=== PATIENT | female | born 1940 | race Caucasian/White ===

== ENCOUNTER 2022-02-28 06:35 | Inpatient (IN) ==
[2022-02-28] MEDS ORDERED: fentaNYL 100 MCG/2 ML VIAL IV ONE (06:38)
--- NOTE | 2022-02-28 06:41 | Emergency Department Note ---
Lower Extremity Injury HPI General Chief Complaint: Extremity Injury, Lower Stated Complaint: Fall,unknown time and unwitnessed , rt hip pain Time Seen by Provider: 02/28/22 06:37 Source: patient and EMS Mode of arrival: EMS Limitations: no limitations History of Present Illness HPI Narrative: Narrative: Patient presents to the ED with complaints of right hip pain status post fall. Patient states she was trying to help somebody she fell backward landed on her right hip. She denies head trauma, loss of consciousness, headaches, neck pain, chest pain, Andrey pain, shoulder pain, knee pain. Overall pain is rated 6/10 and described as a sharp ache. She denies any rrul-pih-dowkecz medication. EMS says that this is a live facility did not witness the fall but they did find patient down. Patient states she has not eaten since last night at dinner. Denies any other alleviating or aggravating factors. Related Data Allergies Allergy/AdvReac Type Severity Reaction Status Date / Time No Known Drug Allergies Allergy Unverified 02/28/22 06:40 Review of Systems ROS ROS Narrative: Narrative: All systems ED: reviewed and negative except as stated. [facility] Narrative Patient History Narrative: Narrative: Medical/Surgical/Family History All Active Problems (Updated 02/28/22 @ 06:41 by Abdirashid Garcia DO) Acute pain of right hip (Acute) Exam Narrative Narrative: Narrative: General Limitations: no limitations General appearance: Absent in distress Head Head: Present atraumatic and normocephalic Eye Eye: Present PERRL and EOMI ENT ENT: Present normal oropharynx and mucous membranes moist Neck Neck: Present normal inspection and full ROM Chest Chest: Present normal inspection; Absent tenderness Respiratory Respiratory: Present normal lung sounds bilaterally; Absent respiratory distress Cardiovascular Cardiovascular: Present regular rate and normal rhythm Adbominal Abdominal: Present soft; Absent tenderness Extremities Extremities: Present normal capillary refill Expanded Lower Extremity Hip/Pelvis: Present tenderness and shortening Knee: Present normal inspection and full ROM; Absent tenderness Back Back: Absent L-S tenderness Neurological Neurological: Present alert and oriented X3 Psychiatric Psychiatric: Present normal affect and normal mood Skin Skin: Present warm (WNL) and intact Course Course Course Narrative: Patient was evaluated for hip pain. Labs have been ordered and are currently pending. CT abdomen pelvis have been ordered and is pending. Patient given IV fentanyl for discomfort. Case will be signed to Dr. Flynn pending labs and CT results to determine final disposition. MDM MDM Narrative Medical decision making narrative: Narrative: Differential Diagnosis Differential Diagnosis: Hip fracture, fall Medical Records Medical records reviewed: Yes I reviewed the patient's medical records. Core Measures AMI Core Measures Followed: Yes Discharge Plan Patient/Caregiver Discharge Instructions Pt seen by CHA[employer] FOUNDER/PA only: No Clinical Impression: Acute pain of right hip Patient Disposition: Still a Patient Condition: Undetermined
[2022-02-28 07:02] LABS: POC Calcium, Ionized 1.22 (1.16-1.32); POC Creatinine 0.7 (0.6-1.2); POC Potassium 3.4 (3.3-5.1)
--- NOTE | 2022-02-28 07:45 | Emergency Department Note ---
Course Course Course Narrative: Serum care of the patient from Dr. Garcia at 0700 hrs. Reviewed chart x-rays and interviewed patient. Patient has an angulated noncomminuted femoral neck fracture. orthopedics asked for a plain film of the hip and to admit the patient. He will see her twan noon. Will order preop orders and call orthopedics. Vital Signs Vital signs: Vital Signs Temperature 97.2 F 02/28/22 06:36 Pulse Rate 81 02/28/22 06:36 Respiratory Rate 20 02/28/22 06:36 Blood Pressure 145/85 02/28/22 06:36 Pulse Oximetry (%) 86 L 02/28/22 06:36 Oxygen Delivery Method 02/28/22 06:36 Temperature 97.2 F 02/28/22 06:36 Pulse Rate 81 02/28/22 06:36 Respiratory Rate 20 02/28/22 06:36 Blood Pressure 145/85 02/28/22 06:36 Pulse Oximetry (%) 86 L 02/28/22 06:36 Oxygen Delivery Method 02/28/22 06:36 MDM MDM Narrative Medical decision making narrative: Narrative: Lab Data Result diagrams: 02/28/22 07:10 Labs: Lab Results 02/28/22 Range/Units 06:57 POC Hct 44.0 (36-48) POC Sodium 142 (133-145) POC Potassium 3.4 (3.3-5.1) POC Chloride 107 (96-108) POC Total CO2 25.0 (22-30) POC BUN 16 (6-20) POC Creatinine 0.7 (0.6-1.2) POC Glucose 108 H (70-105) POC WB Ioniz Calcium 1.22 (1.16-1.32) Discharge Plan Patient/Caregiver Discharge Instructions Pt seen by AUTOMOTIVE TIRE TESTER/PA only: No Clinical Impression: Acute pain of right hip Patient Disposition: Still a Patient Condition: Undetermined
[2022-02-28] MEDS: fentaNYL 100 MCG/2 ML VIAL IV PRN ×4 (07:59→11:27)
[2022-02-28 08:44] LABS: ALT/SGPT 17 U/L (<40); AST/SGOT 19 U/L (<32); Albumin 4.1 gm/dL (3.2-5.2); Albumin/Globulin Ratio 1.2 (1.0-2.3); Alkaline Phosphatase 87 U/L (39-117); Bilirubin,Total 0.9 mg/dL (0.1-1.0); Blood Urea Nitrogen 15 mg/dL (8-23); Calcium 9.6 mg/dL (8.6-10.4); Carbon Dioxide 25 mmol/L (22-30); Chloride 104 mmol/L (96-108); Globulin 3.3 gm/dL (2.2-3.7); Glomerular Filtration Rate 80; Glucose 102 mg/dL (70-105)
[2022-02-28 08:50] LABS: Basophils # (Auto) 0.03 K/mcL (0.00-0.30); Basophils % (Auto) 0.3 % (0.0-2.0); Eosinophils # (Auto) 0.16 K/mcL (0.00-0.70); Eosinophils % (Auto) 1.8 % (0.0-7.0); Hematocrit 42.9 % (34.1-44.9); Lymphocytes # (Auto) 1.51 K/mcL (1.50-4.80); Lymphocytes % (Auto) 17.4 % (15.5-49.0); Mean Cell Volume 101.7 fL (80.0-100.0); Mean Corpuscular HGB Conc 32.6 g/dL (31.0-36.0); Mean Platelet Volume 9.2 fL (8.8-12.5); Monocytes # (Auto) 0.45 K/mcL (0.10-0.90); Monocytes % (Auto) 5.2 % (1.0-12.0); Neutrophils % (Auto) 74.7 % (38.0-78.0); Platelet Count 262 K/mcL (140-440); RBC 4.22 M/mcL (3.59-5.38); Red Cell Distribution Width 12.5 % (11.5-14.5); WBC 8.7 K/mcL (4.5-11.0)
[2022-02-28 09:01] LABS: INR 1.5 (0.9-1.1)
--- NOTE | 2022-02-28 09:20 | XRay Report ---
CLINICAL INFORMATION: Preop COMPARISON: None. TECHNIQUE: Portable FINDINGS: Heart is moderately enlarged. Mediastinum and pulmonary vasculature are normal. There is moderate yet vague airspace disease in the left upper lung which is more likely fibrosis than developing infiltrate. Unfortunately old films are unavailable to confirm stability. Remaining lungs are clear. No effusions. Surgical clips present in the left axilla. IMPRESSION: Moderate cardiomegaly. No evidence of CHF Moderate vague airspace disease left upper lung is most likely fibrosis however evolving infiltrate is not excluded Interpreted and Authenticated by: Jared Sanford 02/28/22
--- NOTE | 2022-02-28 09:28 | XRay Report ---
CLINICAL INFORMATION: Trauma COMPARISON: None. FINDINGS: Basicervical fracture of the right hip shows 1 cm superior displacement femoral neck with respect to the head. There is mild degeneration both SI and hip joints. Soft tissue swelling noted over the fracture site. IMPRESSION: Displaced basicervical fracture right hip Interpreted and Authenticated by: Jared Sanford 02/28/22
--- NOTE | 2022-02-28 10:25 | Cat Scan Report ---
CLINICAL INFORMATION: Trauma COMPARISON: None. TECHNIQUE: 0.625 mm helical slices were obtained from the mid L4 through the subtrochanteric regions. Following reconstruction, 2.5 mm sagittal, coronal and axial reformations were processed. The exam was reviewed in bone and soft tissue windows. The exam was performed using radiation dose optimization techniques including, but not limited to, automated exposure control, adjustment of mA and/or kV according to patient size and use of iterative reconstruction technique. FINDINGS: Transverse acute subcapital fracture of the right hip appreciated. Femoral neck fragment is displaced 18 mm anteriorly and 9 mm superiorly with respect to the femoral head. There is also approximately 40 degrees anterior angulation of fracture apex. No other osseous abnormalities. Both SI and hip joints show minimal degeneration. Anteflexed uterus is normal postmenopausal size 6.7 x 3 cm. Few tiny calcified fibroids present. Urinary bladder is normal. Both ovaries are atrophic and difficult to visualize. Visualized small large bowel are grossly normal. There is no free air, free fluid or adenopathy. Muscle and fascial planes are normal. IMPRESSION: Moderately displaced angulated subcapital fracture right hip Interpreted and Authenticated by: Jared Sanford 02/28/22
--- NOTE | 2022-02-28 10:39 | Internal Med History&Physical ---
HPI History of Present Illness Patient information: Note initiated : 02/28/22 at 10:34 am Service Date, if different from initiated Date: [] Patient: Melly Newell a 81 y/o F admitted on for Fall,unknown time and unwitnessed , rt hip pain. Chief Complaint: [] History of present illness: Ms. Newell is a 81 year old F Presents to the ED after fall and right hip pain. She lives at [facility] and report was that she was helping her roommate when she lost her balance and fell on her right hip immediate pain. She is on Xarelto with an INR of 1.5. She does not know where she is on Xarelto. Family are coming and will try to ascertain the reasoning for which she is taking that medication. We were contacted orthopedic surgery. Review of Systems: Pertinent positives above. Denies headache/fever/chills/nausea/vomiting/chest or abdominal pain/cough/dyspnea/diarrhea. Remaining 10 point review of system reviewed negative PFSH PFSH All Active Problems (Updated 02/28/22 @ 06:41 by Abdirashid Garcia DO) Acute pain of right hip (Acute) MEDS/ALLERGIES Home Medications and Allergies Allergies Allergy/AdvReac Type Severity Reaction Status Date / Time No Known Drug Allergies Allergy Unverified 02/28/22 06:40 EXAM Constitutional Vitals: Temp Pulse Resp BP Pulse Ox O2 Del Method O2 Flow Rate 97.2 F 74 20 131/83 91 4 02/28/22 06:36 02/28/22 09:46 02/28/22 06:36 02/28/22 09:46 02/28/22 09:46 02/28/22 09:16 02/28/22 09:16 Exam: General: Alert, Awake, No acute Distress Eyes/N/T: EOMI, PERRL, Head/Neck: neck supple, normocephalic atraumatic CV: RRR, No murmurs, normal s1/s2 Pulm: Clear b/l, no wheezing/rhonchi/rales Abd: soft, nontender, +BS x4 Ext: no clubbing/cyanosis/edema Neuro: Alert, no focal deficits, moves all extremities, CN 2-12 grossly intact, sensations intact b/l upper/lower Skin: warm/dry DATA Data Completed and Pending Labs: Labs from last 24 hours 02/28/22 02/28/22 02/28/22 07:10 07:10 07:10 WBC 8.7 RBC 4.22 Hgb 14.0 Hct 42.9 POC Hct MCV 101.7 H MCH 33.2 MCHC 32.6 RDW 12.5 Plt Count 262 MPV 9.2 Immature Gran % (Auto) 0.6 H Neut % (Auto) 74.7 Lymph % (Auto) 17.4 [place]zel % (Auto) 5.2 Eos % (Auto) 1.8 Baso % (Auto) 0.3 Lymph # (Auto) 1.51 [place] # (Auto) 0.45 Eos # (Auto) 0.16 Baso # (Auto) 0.03 Immature Gran # 0.05 Absolute Neutrophils 6.46 PT 18.0 H INR 1.5 H POC Sodium Sodium 141 POC Potassium Potassium 3.5 POC Chloride Chloride 104 Carbon Dioxide 25 POC Total CO2 Anion Gap 12.0 POC BUN BUN 15 Creatinine 0.7 POC Creatinine GFR Calculation 80 Glucose 102 POC Glucose Calcium 9.6 POC WB Ioniz Calcium Total Bilirubin 0.9 AST 19 ALT 17 Alkaline Phosphatase 87 Total Protein 7.4 Albumin 4.1 Globulin 3.3 Albumin/Globulin Ratio 1.2 02/28/22 06:57 WBC RBC Hgb Hct POC Hct 44.0 MCV MCH MCHC RDW Plt Count MPV Immature Gran % (Auto) Neut % (Auto) Lymph % (Auto) [place] % (Auto) Eos % (Auto) Baso % (Auto) Lymph # (Auto) [place] # (Auto) Eos # (Auto) Baso # (Auto) Immature Gran # Absolute Neutrophils PT INR POC Sodium 142 Sodium POC Potassium 3.4 Potassium POC Chloride 107 Chloride Carbon Dioxide POC Total CO2 25.0 Anion Gap POC BUN 16 BUN Creatinine POC Creatinine 0.7 GFR Calculation Glucose POC Glucose 108 H Calcium POC WB Ioniz Calcium 1.22 Total Bilirubin AST ALT Alkaline Phosphatase Total Protein Albumin Globulin Albumin/Globulin Ratio A/P Narrative A/P Narrative: A: *Right hip fracture: *Advanced dementia: *Anticoagulation use: Unknown reason *Generalized weakness/deconditioning: P: -Dr. Carson for orthopedic surgery -Pain control -PT/OT -UA -Delirium precautions -Home medication reconciliation -Case management for placement needs -ppx: SCDs (Xarelto held) Time Spent With Patient Time: Total time spent is greater than 50% in coordination of care (as documented) at patient's floor/unit and/or counseling patient: Total time spent with greater than 50% in coordination of care (as documented) at patient's floor/unit and/or counseling patient:: 50 - 70 minutes QUALITY Stroke Symptom Onset Unknown: No
[2022-02-28] MEDS ORDERED: MAGNESIUM SULFATE 2 GM/50 ML BAG IV PRN (12:15)
[2022-02-28] MEDS ORDERED: POLYETHYLENE GLYCOL 3350 17 GM PACKET PO PRN (12:15)
[2022-02-28] MEDS ORDERED: POTASSIUM CHLORIDE 20 MEQ TABLET PO PRN ×2 (12:15)
[2022-02-28] MEDS ORDERED: POTASSIUM CHLORIDE 40 MEQ in DEXTROSE 5% IN WATER 500 ML IV PRN (12:15)
[2022-02-28] MEDS ORDERED: SENNOSIDES 1 TABLET PO PRN (12:15)
[2022-02-28] MEDS ORDERED: ONDANSETRON 4 MG/2 ML VIAL IV PRN (12:15)
[2022-02-28] MEDS ORDERED: IPRATROPIUM/ALBUTEROL 3 ML AMPUL.NEB NEB PRN (12:15)
[2022-02-28] MEDS: morphine 4 MG/ML VIAL IV PRN ×2 (13:16→15:22)
[2022-02-28] MEDS: 0.9 % SODIUM CHLORIDE 10 ML SYRINGE IV SCH ×2 (15:23→21:48)
[2022-02-28] MEDS ORDERED: PROMETHAZINE 25 MG/ML VIAL IV PRN (15:55)
[2022-02-28 16:41] LABS: Appearance,Urine HAZY (Clear); Bilirubin,Urine Negative (Negative); Color,Urine YELLOW; Culture Indicated,Urine No; Glucose,Urine (UA) Negative (Negative); Ketones,Urine 5 mg/dL (Negative); Leukocyte Esterase,Urine Negative /uL (Negative); Mucus,Urine FEW /hpf; Nitrate,Urine Negative (Negative); Protein,Urine Negative (Negative); Specific Gravity,Urine 1.015 (1.000-1.035); Urine Blood 0.03 mg/dL (Negative); Urine Hyaline Cast 3 /lph (0-2); Urine RBC 14 /hpf (0-3); Urine Squamous Epithelial Cell < 1 /hpf (0-4); Urine WBC 2 /hpf (0-4); Urobilinogen,Urine Negative
[2022-02-28] MEDS: DOCUSATE SODIUM 100 MG CAPSULE PO SCH (21:18)
[2022-03-01] MEDS: 0.9 % SODIUM CHLORIDE 10 ML SYRINGE IV SCH ×3 (05:28→22:04)
[2022-03-01] MEDS: ACETAMINOPHEN 325 MG TABLET PO PRN ×2 (06:52→19:43)
[2022-03-01 06:56] LABS: Basophils # (Auto) 0.03 K/mcL (0.00-0.30); Basophils % (Auto) 0.3 % (0.0-2.0); Eosinophils # (Auto) 0.06 K/mcL (0.00-0.70); Eosinophils % (Auto) 0.5 % (0.0-7.0); Hematocrit 41.3 % (34.1-44.9); Hemoglobin 13.4 g/dL (11.2-15.7); Lymphocytes # (Auto) 1.01 K/mcL (1.50-4.80); Lymphocytes % (Auto) 8.9 % (15.5-49.0); Mean Corpuscular HGB Conc 32.4 g/dL (31.0-36.0); Mean Platelet Volume 8.9 fL (8.8-12.5); Monocytes # (Auto) 0.94 K/mcL (0.10-0.90); Monocytes % (Auto) 8.3 % (1.0-12.0); Neutrophils % (Auto) 81.6 % (38.0-78.0); Platelet Count 218 K/mcL (140-440); RBC 4.05 M/mcL (3.59-5.38); Red Cell Distribution Width 12.4 % (11.5-14.5); WBC 11.4 K/mcL (4.5-11.0)
--- NOTE | 2022-03-01 06:58 | Orthopedic Progress Note ---
SUBJECTIVE Subjective Patient information: Note initiated : 03/01/22 at 6:56 am Service Date, if different from initiated Date: [] Patient: Melly Newell 81 y/o F admitted on 02/28/22 for Fall,unknown time and unwitnessed , rt hip pain. Chief Complaint: [] Constitutional Vitals: Vital Signs Temp Pulse Resp BP Pulse Ox O2 Del Method O2 Flow Rate 99.2 F H 82 16 131/86 91 3 03/01/22 04:00 03/01/22 04:00 03/01/22 04:00 03/01/22 04:00 03/01/22 04:00 03/01/22 04:00 03/01/22 04:00 Period Temp Pulse Resp BP Sys/Wasserman Pulse Ox O2 Del Method O2 Flow Rate Last 24 Hr 97.2 F-99.2 F 67-89 16-20 115-152/62-121 88-97 Nasal Cannula- Room Air 2-4 Intake and Output 02/28/22 03/01/22 03/01/22 19:59 03:59 11:59 Intake Total 480 240 Output Total 900 350 Balance -420 -110 Weight 160 lb 150 lb 4 oz Intake & Output: Intake & Output 02/28/22 03/01/22 03/01/22 19:59 03:59 11:59 Intake Total 480 240 Output Total 900 350 Balance -420 -110 Weight 160 lb 150 lb 4 oz Intake: Oral 480 120 GI Tube Flush 120 Output: Urine Catheter Amount 900 350 Other: Urine Appearance Clear Clear Clear Urine Color Light Zarina Yellow Yellow Urine Odor Normal Normal # Unmeasured Emesis 3 OBJ DATA Labs CBC & Chem 7: 02/28/22 07:10 02/28/22 07:10 Labs: Abnormal Lab Results 02/28/22 02/28/22 02/28/22 16:00 07:10 07:10 MCV 101.7 H Immature Gran % (Auto) 0.6 H PT 18.0 H INR 1.5 H POC Glucose Urine Appearance Hazy A Urine Ketones 5 A Urine RBC 14 H Hyaline Casts 3 H Urine Mucus Few A 02/28/22 06:57 MCV Immature Gran % (Auto) PT INR POC Glucose 108 H Urine Appearance Urine Ketones Urine RBC Hyaline Casts Urine Mucus Meds: Medications Acetaminophen (Acetaminophen 325 Mg Tablet) 650 mg PO Q6HP PRN; Protocol PRN Reason: Per Pain Protocol/Fever > 101 Last Admin: 03/01/22 06:52 Dose: 650 mg Hydrocodone Bitart/Acetaminophen (Hydrocodone/Apap 5/325mg Tablet) 1 tab PO Q4HP PRN PRN Reason: PAIN LEVEL 3-6 Albuterol/Ipratropium (Ipratropium/Albuterol 3 Ml Ampul.Neb) 3 ml NEB Q4HP PRN PRN Reason: Shortness Of Breath Docusate Sodium (Docusate Sodium 100 Mg Capsule) 100 mg PO BID [facility] Last Admin: 02/28/22 21:18 Dose: Not Given Potassium Chloride 40 meq/ (Dextrose) 520 mls @ 130 mls/hr IV UD PRN PRN Reason: Potassium < 3 Magnesium Sulfate (Magnesium Sulfate) 2 gm in 50 mls @ 50 mls/hr IV UD PRN PRN Reason: Magnesium </= 1.6 Morphine Sulfate (Morphine 4 Mg/Ml Vial) 0 mg IV Q3HP PRN PRN Reason: Pain Last Admin: 02/28/22 15:22 Dose: 3 mg Ondansetron HCl (Ondansetron 4 Mg/2 Ml Vial) 4 mg IV Q4HP PRN PRN Reason: Nausea And Vomiting Last Admin: 02/28/22 15:22 Dose: 4 mg Polyethylene Glycol (Polyethylene Glycol 3350 17 Gm Packet) 17 gm PO DAILYP PRN PRN Reason: Constipation Potassium Chloride (Potassium Chloride 20 Meq Tablet) 40 meq PO UD PRN PRN Reason: Potssium is 3-3.5 Potassium Chloride (Potassium Chloride 20 Meq Tablet) 40 meq PO UD PRN PRN Reason: Potassium < 3 Promethazine HCl (Promethazine 25 Mg/Ml Vial) 12.5 mg IV Q4-6HP PRN PRN Reason: Nausea And Vomiting Last Admin: 02/28/22 16:12 Dose: 12.5 mg Senna (Sennosides 1 Tablet) 2 tab PO DAILYP PRN PRN Reason: Constipation Sodium Chloride (0.9 % Sodium Chloride 10 Ml Syringe) 10 ml IV Q8 [facility] Last Admin: 03/01/22 05:28 Dose: 10 ml A/P Assessment and plan (1) Acute pain of right hip: Assessment and plan: note dictated yesterday- plan is for leena hip tomorrow AM blood thinner. Discussed with Dr. Shields, he is willing to take over care given my unavailability tomorrow. Status: Acute Time Spent With Patient Time: Total time spent is greater than 50% in coordination of care (as documented) at patient's floor/unit and/or counseling patient:
--- NOTE | 2022-03-01 07:30 | Consultation ---
DATE OF CONSULTATION: 02/28/2022 REASON FOR CONSULTATION: Right hip fracture. HOSPITAL PROVIDER: ER at [facility]. HISTORY OF PRESENT ILLNESS: The patient is an 81-year-old female who resides at a nursing care facility and she was found on the ground this morning next to her roommate. She was brought to the emergency department for further evaluation and treatment. Upon presentation, she was found to have a right hip fracture. She was admitted to the hospitalist service today. I discussed this afternoon with her daughter who was present as well. The patient was asleep but no complaints on that is noted. PAST MEDICAL HISTORY: Significant for dementia as well as AFib for which she is on Xarelto. ALLERGIES: NO KNOWN DRUG ALLERGIES. MEDICATIONS: Xarelto. SOCIAL HISTORY: As noted above, she resides in a care facility. No tobacco use. PHYSICAL EXAMINATION: GENERAL: The patient is asleep and comfortable and not in acute distress. VITAL SIGNS: She is afebrile with temperature 97.9, satting 94% on 2 L nasal cannula, blood pressure is stable 130s. EXTREMITIES: Range of motion of the hip is not performed around this fracture. The foot is warm and well perfused. It is shortened and externally rotated. IMAGING: She has plain radiographs demonstrating a displaced femoral neck fracture. She has a CT which demonstrated a right displaced femoral neck fracture. She has x-ray demonstrating a displaced right femoral neck fracture with minimal underlying arthritis. LABORATORY DATA: She has an INR of 1.5. CBC with a white count of 8.7, H and H are 14 and 42, platelets 262. Chemistry with creatinine 0.7, glucose 102. ASSESSMENT AND PLAN: This is an 81-year-old female with dementia as well as on Xarelto with a right displaced femoral neck fracture. I discussed this with her daughter as well as treatment options. I discussed the typical treatment would be for a right leena hip arthroplasty. I discussed what this is as well as expectations. However, given the Xarelto, I typically recommended to wait about 48 hours prior to proceeding with surgery. I discussed risks of that proceeding without waiting as bleeding could be relatively uncontrolled and significant blood loss can occur. Given that they did understand, okay to proceed with waiting the two days and proceeding with right hip hemiarthroplasty on Friday morning. I had discussed this case with Dr. Smith as I am going to be out of town and will not be available for the surgery itself. They understand. Otherwise, questions answered. DLW:lázaro Job ID: [id number] Doc ID: [id number] Karime Carson MD [facility]
[2022-03-01 07:37] LABS: ALT/SGPT 13 U/L (<40); AST/SGOT 15 U/L (<32); Albumin 3.6 gm/dL (3.2-5.2); Albumin/Globulin Ratio 1.2 (1.0-2.3); Alkaline Phosphatase 73 U/L (39-117); Bilirubin,Direct 0.2 mg/dL (<0.3); Blood Urea Nitrogen 15 mg/dL (8-23); Calcium 9.4 mg/dL (8.6-10.4); Carbon Dioxide 25 mmol/L (22-30); Chloride 103 mmol/L (96-108); Globulin 3.1 gm/dL (2.2-3.7); Glomerular Filtration Rate 68; Glucose 102 mg/dL (70-105); Lactate Dehydrogenase 224 U/L (135-225); Phosphorous 3.3 mg/dL (2.5-4.5); Triglycerides 81 mg/dL (<150); Uric Acid 5.2 mg/dL (2.5-8.0)
--- NOTE | 2022-03-01 07:41 | EKG ---
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
--- NOTE | 2022-03-01 07:55 | Internal Med Progress Note ---
SUBJECTIVE Subjective Patient information: Note initiated : 03/01/22 at 7:53 am Service Date, if different from initiated Date: [] Patient: Melly Newell a 81 y/o F admitted on 02/28/22 for Fall,unknown time and unwitnessed , rt hip pain. Chief Complaint: [] Interval history: History of present illness: Ms. Newell is a 81 year old F Presents to the ED after fall and right hip pain. She lives at [facility] and report was that she was helping her roommate when she lost her balance and fell on her right hip immediate pain. She is on Xarelto with an INR of 1.5. She does not know where she is on Xarelto. Family are coming and will try to ascertain the reasoning for which she is taking that medication. We were contacted orthopedic surgery. 03/01 No overnight event or new complaints. Patient pleasantly demented. Ortho for repair tomorrow. Sounds like she is on Xarelto for atrial fibrillation which is currently sinus likely paroxysmal A. fib. Review of Systems: denies headache/fever/chills/nausea/vomiting/chest or abdominal pain/cough/dyspnea/diarrhea. Otherwise see above. Constitutional Vitals: Vital Signs Temp Pulse Resp BP Pulse Ox O2 Del Method O2 Flow Rate 99.7 F H 85 18 115/90 91 4 03/01/22 07:16 03/01/22 07:30 03/01/22 07:30 03/01/22 07:16 03/01/22 07:30 03/01/22 07:30 03/01/22 07:30 Period Temp Pulse Resp BP Sys/Wasserman Pulse Ox O2 Del Method O2 Flow Rate Last 24 Hr 97.2 F-99.7 F 67-89 16-20 115-152/62-121 88-97 Nasal Cannula- Room Air 2-4 Intake and Output 02/28/22 03/01/22 03/01/22 19:59 03:59 11:59 Intake Total 480 240 Output Total 900 350 Balance -420 -110 Weight 72.575 kg 68.152 kg Intake & Output: Intake & Output 02/28/22 03/01/22 03/01/22 19:59 03:59 11:59 Intake Total 480 240 Output Total 900 350 Balance -420 -110 Weight 72.575 kg 68.152 kg Intake: Oral 480 120 GI Tube Flush 120 Output: Urine Catheter Amount 900 350 Other: Urine Appearance Clear Clear Clear Urine Color Light Zarina Yellow Yellow Urine Odor Normal Normal # Unmeasured Emesis 3 Exam: General: Alert, Awake, No acute Distress Eyes/N/T: EOMI,, Head/Neck: neck supple, CV: RRR, No murmurs, Pulm: Clear b/l, no wheezing/rhonchi/rales Abd: soft, nontender, +BS x4 Ext: no clubbing/cyanosis/edema Neuro: Alert, no focal deficits, moves all extremities, Skin: warm/dry OBJ DATA Labs CBC & Chem 7: 03/01/22 05:41 03/01/22 05:40 Labs: Abnormal Lab Results 03/01/22 02/28/22 02/28/22 05:41 16:00 07:10 WBC 11.4 H MCV 102.0 H Immature Gran % (Auto) Neut % (Auto) 81.6 H Lymph % (Auto) 8.9 L Lymph # (Auto) 1.01 L [place] # (Auto) 0.94 H Absolute Neutrophils 9.31 H PT 18.0 H INR 1.5 H POC Glucose Urine Appearance Hazy A Urine Ketones 5 A Urine RBC 14 H Hyaline Casts 3 H Urine Mucus Few A 02/28/22 02/28/22 07:10 06:57 WBC MCV 101.7 H Immature Gran % (Auto) 0.6 H Neut % (Auto) Lymph % (Auto) Lymph # (Auto) [place] # (Auto) Absolute Neutrophils PT INR POC Glucose 108 H Urine Appearance Urine Ketones Urine RBC Hyaline Casts Urine Mucus Meds: Medications Acetaminophen (Acetaminophen 325 Mg Tablet) 650 mg PO Q6HP PRN; Protocol PRN Reason: Per Pain Protocol/Fever > 101 Last Admin: 03/01/22 06:52 Dose: 650 mg Hydrocodone Bitart/Acetaminophen (Hydrocodone/Apap 5/325mg Tablet) 1 tab PO Q4HP PRN PRN Reason: PAIN LEVEL 3-6 Albuterol/Ipratropium (Ipratropium/Albuterol 3 Ml Ampul.Neb) 3 ml NEB Q4HP PRN PRN Reason: Shortness Of Breath Last Admin: 03/01/22 07:03 Dose: 3 ml Docusate Sodium (Docusate Sodium 100 Mg Capsule) 100 mg PO BID [facility] Last Admin: 02/28/22 21:18 Dose: Not Given Potassium Chloride 40 meq/ (Dextrose) 520 mls @ 130 mls/hr IV UD PRN PRN Reason: Potassium < 3 Magnesium Sulfate (Magnesium Sulfate) 2 gm in 50 mls @ 50 mls/hr IV UD PRN PRN Reason: Magnesium </= 1.6 Morphine Sulfate (Morphine 4 Mg/Ml Vial) 0 mg IV Q3HP PRN PRN Reason: Pain Last Admin: 02/28/22 15:22 Dose: 3 mg Ondansetron HCl (Ondansetron 4 Mg/2 Ml Vial) 4 mg IV Q4HP PRN PRN Reason: Nausea And Vomiting Last Admin: 02/28/22 15:22 Dose: 4 mg Polyethylene Glycol (Polyethylene Glycol 3350 17 Gm Packet) 17 gm PO DAILYP PRN PRN Reason: Constipation Potassium Chloride (Potassium Chloride 20 Meq Tablet) 40 meq PO UD PRN PRN Reason: Potssium is 3-3.5 Potassium Chloride (Potassium Chloride 20 Meq Tablet) 40 meq PO UD PRN PRN Reason: Potassium < 3 Promethazine HCl (Promethazine 25 Mg/Ml Vial) 12.5 mg IV Q4-6HP PRN PRN Reason: Nausea And Vomiting Last Admin: 02/28/22 16:12 Dose: 12.5 mg Senna (Sennosides 1 Tablet) 2 tab PO DAILYP PRN PRN Reason: Constipation Sodium Chloride (0.9 % Sodium Chloride 10 Ml Syringe) 10 ml IV Q8 [facility] Last Admin: 03/01/22 05:28 Dose: 10 ml A/P Narrative A/P Narrative: A: *Right hip fracture: *Advanced dementia: *Generalized weakness/deconditioning: *PAF: on xaralto, not on any AVN blockers *Macrocytosis: *Volume depletion: P: -Dr. Carson for orthopedic surgery -Pain control -PT/OT -s/p IVF -f/u cbc/chem -Delirium precautions -Case management for placement needs -ppx: SCDs (Xarelto held) Time Spent With Patient Time: Total time spent is greater than 50% in coordination of care (as documented) at patient's floor/unit and/or counseling patient: Total time spent with greater than 50% in coordination of care (as documented) at patient's floor/unit and/or counseling patient:: 25 - 35 minutes QUALITY Stroke Symptom Onset Unknown: No VTE Deep Vein Thrombosis/Pulmonary Embolism Present on Admission: No
[2022-03-01] MEDS: DOCUSATE SODIUM 100 MG CAPSULE PO SCH ×2 (08:24→22:04)
[2022-03-01] MEDS ORDERED: METOPROLOL TARTRATE 5 MG/5 ML VIAL IV PRN (10:01)
[2022-03-01] MEDS: morphine 4 MG/ML VIAL IV PRN (10:36)
--- NOTE | 2022-03-01 14:25 | XRay Report ---
CLINICAL INFORMATION: Chest pain COMPARISON: 02/28/2022 TECHNIQUE: Portable FINDINGS: Moderate cardiomegaly is unchanged. Mediastinum and pulmonary vessels are normal. Minor bibasilar atelectasis developed. No effusions. IMPRESSION: Moderate stable cardiomegaly. Minor bibasilar atelectasis Interpreted and Authenticated by: Jared Sanford 03/01/22
[2022-03-01 16:51] LABS: Eosinophils % (Manual) 3 % (0-7); Lymphocytes % 16 % (15-49); Macrocytosis 1+ (None Seen); Monocytes % (Manual) 6 % (1-12); Platelet Estimate NORMAL (Normal); RBC Morphology ABNORMAL (Normal); Reactive Lymphocytes 4 % (0-2); Segmented Neutrophils % 71 % (38-78)
[2022-03-02 07:05] LABS: Basophils # (Auto) 0.02 K/mcL (0.00-0.30); Basophils % (Auto) 0.2 % (0.0-2.0); Eosinophils # (Auto) 0.03 K/mcL (0.00-0.70); Eosinophils % (Auto) 0.3 % (0.0-7.0); Hematocrit 40.7 % (34.1-44.9); Hemoglobin 13.5 g/dL (11.2-15.7); Lymphocytes % (Auto) 12.6 % (15.5-49.0); Mean Corpuscular HGB Conc 33.2 g/dL (31.0-36.0); Mean Platelet Volume 9.5 fL (8.8-12.5); Monocytes # (Auto) 0.93 K/mcL (0.10-0.90); Monocytes % (Auto) 8.4 % (1.0-12.0); Platelet Count 199 K/mcL (140-440); RBC 4.03 M/mcL (3.59-5.38); Red Cell Distribution Width 12.5 % (11.5-14.5); WBC 11.1 K/mcL (4.5-11.0)
[2022-03-02] MEDS: 0.9 % SODIUM CHLORIDE 10 ML SYRINGE IV SCH ×3 (07:38→21:50)
[2022-03-02] MEDS ORDERED: ceFAZolin 1 GM VIAL IV ONE (07:58)
[2022-03-02] MEDS ORDERED: IPRATROPIUM/ALBUTEROL 3 ML AMPUL.NEB NEB PRN (08:00)
[2022-03-02] MEDS ORDERED: SCOPOLAMINE 1 PATCH PATCH TOPICAL PRN (08:00)
[2022-03-02] MEDS ORDERED: PROPOFOL 200 MG/20 ML VIAL IV ONE (08:05)
[2022-03-02] MEDS ORDERED: ROCURONIUM 10 MG/ML ML IV ONE (08:05)
[2022-03-02] MEDS ORDERED: ROPIVACAINE HCL/PF 20 ML VIAL IJ ONE (08:05)
[2022-03-02] MEDS ORDERED: PHENYLephrine 1 MG/10 ML SYRINGE (ANEST) ONE (08:05)
[2022-03-02] MEDS ORDERED: fentaNYL 250 MCG/5 ML VIAL IV ONE (08:05)
[2022-03-02] MEDS ORDERED: LIDOCAINE HCL/PF 100 MG/5 ML SYRINGE IV ONE (08:05)
[2022-03-02] MEDS ORDERED: DEXAMETHASONE 10 MG/ML VIAL ONE (08:05)
[2022-03-02] MEDS ORDERED: TRANEXAMIC ACID 1,000 MG/10 ML VIAL ONE (08:05)
--- NOTE | 2022-03-02 08:14 | Internal Med Progress Note ---
SUBJECTIVE Subjective Patient information: Note initiated : 03/02/22 at 8:10 am Service Date, if different from initiated Date: [] Patient: Melly Newell a 81 y/o F admitted on 02/28/22 for Right H emiarthroplasty Hip. Chief Complaint: [] Interval history: History of present illness: Ms. Newell is a 81 year old F Presents to the ED after fall and right hip pain. She lives at [facility] and report was that she was helping her roommate when she lost her balance and fell on her right hip immediate pain. She is on Xarelto with an INR of 1.5. She does not know where she is on Xarelto. Family are coming and will try to ascertain the reasoning for which she is taking that medication. We were contacted orthopedic surgery. 03/01 No overnight event or new complaints. Patient pleasantly demented. Ortho for repair tomorrow. Sounds like she is on Xarelto for atrial fibrillation which is currently sinus likely paroxysmal A. fib. 03/02 Patient status post hip ORIF. She is just returned from PACU and still little g roggy. Complains of some hip pain. Patient required increasing oxygen yesterday. As she seemed to be having trouble trouble clearing her throat. Then she was able to cough up a large amount of thick phlegm in her oxygen improved. She was on room air this morning prior to surgery. Follow-up chest x-ray yesterday just showed minor bibasilar atelectasis no acute changes. Calcitonin unremarkable. Afebrile. Review of Systems: denies headache/fever/chills/nausea/vomiting/chest or abdominal pain /cough/dyspnea/diarrhea. Otherwise see above. Constitutional Vitals: Vital Signs Temp Pulse Resp BP Pulse Ox O2 Del Method O2 Flow Rate 99.4 F H 96 H 16 104/66 91 4 03/02/22 07:56 03/02/22 04:00 03/02/22 07:56 03/02/22 07:56 03/02/22 07:56 03/02/22 07:56 03/01/22 15:59 Period Temp Pulse Resp BP Sys/Wasserman Pulse Ox O2 Del Method O2 Flow Rate Last 24 Hr 97.2 F-99.5 F 96-117 16-20 92-137/66-83 91-94 Nasal Cannula- Room Air 4-4 Intake and Output 03/01/22 03/02/22 03/02/22 19:59 03:59 11:59 Intake Total 350 100 Output Total 395 500 Balance -45 -400 Weight 68.152 kg 68.855 kg Intake & Output: Intake & Output 03/01/22 03/02/22 03/02/22 19:59 03:59 11:59 Intake Total 350 100 Output Total 395 500 Balance -45 -400 Weight 68.152 kg 68.855 kg Intake: Oral 350 100 Output: Urine Catheter Amount 375 500 Other 20 Other: Urine Appearance Clear Clear Clear Urine Color Bright Yellow Dark Yellow Dark Zarina Urine Odor Normal Strong Exam: General: Drowsy, No acute Distress Eyes/N/T: EOMI,, Head/Neck: neck supple, CV: RRR, No murmurs, Pulm: Clear b/l, no wheezing/rhonchi/rales Abd: soft, nontender, +BS x4 Ext: no clubbing/cyanosis/edema Neuro: Drowsy postop but awakens, no focal deficits, moves all extremities, Skin: warm/dry OBJ DATA Labs CBC & Chem 7: 03/02/22 05:36 03/01/22 05:40 Labs: Abnormal Lab Results 03/02/22 03/01/22 03/01/22 05:36 15:28 15:28 WBC 11.1 H MCV 101.0 H Immature Gran % (Auto) Neut % (Auto) Lymph % (Auto) 12.6 L Lymph # (Auto) 1.40 L Hitchcock # (Auto) 0.93 H Absolute Neutrophils 8.67 H Reactive Lymphocytes 4 H RBC Morphology Abnormal A Macrocytosis 1+ A PT INR POC Glucose Procalcitonin 0.17 H Urine Appearance Urine Ketones Urine RBC Hyaline Casts Urine Mucus 03/01/22 02/28/22 02/28/22 05:41 16:00 07:10 WBC 11.4 H MCV 102.0 H Immature Gran % (Auto) Neut % (Auto) 81.6 H Lymph % (Auto) 8.9 L Lymph # (Auto) 1.01 L Hitchcock # (Auto) 0.94 H Absolute Neutrophils 9.31 H Reactive Lymphocytes RBC Morphology Macrocytosis PT 18.0 H INR 1.5 H POC Glucose Procalcitonin Urine Appearance Hazy A Urine Ketones 5 A Urine RBC 14 H Hyaline Casts 3 H Urine Mucus Few A 02/28/22 02/28/22 07:10 06:57 WBC MCV 101.7 H Immature Gran % (Auto) 0.6 H Neut % (Auto) Lymph % (Auto) Lymph # (Auto) Hitchcock # (Auto) Absolute Neutrophils Reactive Lymphocytes RBC Morphology Macrocytosis PT INR POC Glucose 108 H Procalcitonin Urine Appearance Urine Ketones Urine RBC Hyaline Casts Urine Mucus Meds: Medications Acetaminophen (Acetaminophen 325 Mg Tablet) 650 mg PO Q6HP PRN; Protocol PRN Reason: Per Pain Protocol/Fever > 101 Last Admin: 03/01/22 19:43 Dose: 650 mg Hydrocodone Bitart/Acetaminophen (Hydrocodone/Apap 5/325mg Tablet) 1 tab PO Q4HP PRN PRN Reason: PAIN LEVEL 3-6 Albuterol/Ipratropium (Ipratropium/Albuterol 3 Ml Ampul.Neb) 3 ml NEB Q4HP PRN PRN Reason: Shortness Of Breath Last Admin: 03/01/22 07:03 Dose: 3 ml Albuterol/Ipratropium (Ipratropium/Albuterol 3 Ml Ampul.Neb) 3 ml NEB ONCE PRN PRN Reason: Shortness Of Breath Stop: 03/02/22 18:00 Docusate Sodium (Docusate Sodium 100 Mg Capsule) 100 mg PO BID MARIAN Last Admin: 03/01/22 22:04 Dose: 100 mg Potassium Chloride 40 meq/ (Dextrose) 520 mls @ 130 mls/hr IV UD PRN PRN Reason: Potassium < 3 Magnesium Sulfate (Magnesium Sulfate) 2 gm in 50 mls @ 50 mls/hr IV UD PRN PRN Reason: Magnesium </= 1.6 Metoprolol Tartrate (Metoprolol Tartrate 5 Mg/5 Ml Vial) 5 mg IV Q2HP PRN PRN Reason: Tachyarrhythmias HR>110 Morphine Sulfate (Morphine 4 Mg/Ml Vial) 0 mg IV Q3HP PRN PRN Reason: Pain Last Admin: 03/01/22 10:36 Dose: 3 mg Ondansetron HCl (Ondansetron 4 Mg/2 Ml Vial) 4 mg IV Q4HP PRN PRN Reason: Nausea And Vomiting Last Admin: 02/28/22 15:22 Dose: 4 mg Polyethylene Glycol (Polyethylene Glycol 3350 17 Gm Packet) 17 gm PO DAILYP PRN PRN Reason: Constipation Potassium Chloride (Potassium Chloride 20 Meq Tablet) 40 meq PO UD PRN PRN Reason: Potssium is 3-3.5 Potassium Chloride (Potassium Chloride 20 Meq Tablet) 40 meq PO UD PRN PRN Reason: Potassium < 3 Promethazine HCl (Promethazine 25 Mg/Ml Vial) 12.5 mg IV Q4-6HP PRN PRN Reason: Nausea And Vomiting Last Admin: 02/28/22 16:12 Dose: 12.5 mg Scopolamine (Scopolamine 1 Patch Patch) 1 patch TOPICAL PREOP PRN PRN Reason: Nausea And Vomiting Stop: 03/02/22 18:00 Senna (Sennosides 1 Tablet) 2 tab PO DAILYP PRN PRN Reason: Constipation Sodium Chloride (0.9 % Sodium Chloride 10 Ml Syringe) 10 ml IV Q8 [facility] Last Admin: 03/02/22 07:38 Dose: Not Given A/P Narrative A/P Narrative: A: *Right hip fracture: s/p ORIF (03/02) *Advanced dementia: *Generalized weakness/deconditioning: *PAF: on xaralto, not on any AVN blockers *Macrocytosis: *Volume depletion: improved *Acute hypoxic resp failure: 2/2 atelectasis and poor clearing of airway, improving P: -Dr. Carson for orthopedic surgery -Pain control -PT/OT -f/u cbc/chem -tele, possibly start BB -IS/Acapella, monitor O2 -Delirium precautions -Case management for placement needs -ppx: SCDs (Xarelto held for surgery) Time Spent With Patient Time: Total time spent is greater than 50% in coordination of care (as documented) at patient's floor/unit and/or counseling patient: Total time spent with greater than 50% in coordination of care (as documented) at patient's floor/unit and/or counseling patient:: 35 - 50 minutes QUALITY Stroke Symptom Onset Unknown: No VTE Deep Vein Thrombosis/Pulmonary Embolism Present on Admission: No
[2022-03-02] MEDS ORDERED: FLEETS ADULT ENEMA PR PRN (09:24)
[2022-03-02] MEDS ORDERED: TRANEXAMIC ACID 1,000 MG/10 ML VIAL IV ONE (09:24)
--- NOTE | 2022-03-02 09:24 | Brief Operative Note ---
Brief Operative Note Date of procedure: 03/02/22 Pre-op diagnosis: Right displaced femoral neck fracture Post-op diagnosis: same Procedure: Open treatment of right femoral neck fracture with prosthetic hemiarthroplasty Grafts/Implants: Yes (Elida Accolade cemented size 6, 132 deg stem, +4 neck, 48 unipolar head) Anesthesia: GETA and spinal Findings: displaced femoral neck fx Complications: none Surgeon: Edu Smith Client Services Analyst: Nathaniel Marquez Estimated blood loss (cc): 100 Specimens Removed/Pathology: none sent Condition: stable Disposition: PACU
[2022-03-02] MEDS ORDERED: ceFAZolin 2 GM in DEXTROSE 5% IN WATER 50 ML IV SCH (09:30)
--- NOTE | 2022-03-02 10:47 | XRay Report ---
CLINICAL INFORMATION: Right hip prostheses following right hip fracture FINDINGS: The right hip prostheses is anatomically aligned. The left hip is normal. There are no osseous abnormalities. Soft tissue swelling over the surgical site-as expected. IMPRESSION: Right hip prostheses in anatomic alignment. Interpreted and Authenticated by: Jared Sanford 03/02/22
[2022-03-02] MEDS: morphine 4 MG/ML VIAL IV PRN ×2 (11:14→14:22)
[2022-03-02] MEDS: DOCUSATE SODIUM 100 MG CAPSULE PO SCH ×2 (11:18→21:49)
[2022-03-02] MEDS: 0.9 % SODIUM CHLORIDE 1,000 ML IV SCH ×2 (11:18→19:55)
[2022-03-02] MEDS: HYDROcodone/APAP 5/325MG TABLET PO PRN ×3 (12:39→21:48)
[2022-03-02] MEDS: ceFAZolin 1 GM VIAL IV SCH (16:44)
[2022-03-02] MEDS: METOPROLOL TARTRATE 25 MG TABLET PO SCH (21:49)
[2022-03-03] MEDS ORDERED: ceFAZolin 1 GM VIAL ONE (02:05)
[2022-03-03] MEDS: ceFAZolin 1 GM VIAL IV SCH (02:12)
[2022-03-03] MEDS: 0.9 % SODIUM CHLORIDE 10 ML SYRINGE IV SCH ×3 (05:43→20:10)
[2022-03-03] MEDS: 0.9 % SODIUM CHLORIDE 1,000 ML IV SCH (05:43)
[2022-03-03 06:49] LABS: Basophils # (Auto) 0 K/mcL (0.00-0.30); Basophils % (Auto) 0 % (0.0-2.0); Eosinophils # (Auto) 0 K/mcL (0.00-0.70); Eosinophils % (Auto) 0 % (0.0-7.0); Hematocrit 37.8 % (34.1-44.9); Hemoglobin 12.3 g/dL (11.2-15.7); Lymphocytes # (Auto) 1.04 K/mcL (1.50-4.80); Mean Cell Volume 101.1 fL (80.0-100.0); Mean Corpuscular HGB Conc 32.5 g/dL (31.0-36.0); Mean Platelet Volume 9.8 fL (8.8-12.5); Monocytes % (Auto) 8.6 % (1.0-12.0); Platelet Count 189 K/mcL (140-440); RBC 3.74 M/mcL (3.59-5.38); Red Cell Distribution Width 12.2 % (11.5-14.5); WBC 11.6 K/mcL (4.5-11.0)
[2022-03-03 07:18] LABS: Blood Urea Nitrogen 22 mg/dL (8-23); Calcium 9.2 mg/dL (8.6-10.4); Carbon Dioxide 24 mmol/L (22-30); Chloride 104 mmol/L (96-108); Glomerular Filtration Rate 80; Glucose 127 mg/dL (70-105)
--- NOTE | 2022-03-03 08:20 | Internal Med Progress Note ---
SUBJECTIVE Subjective Patient information: Note initiated : 03/03/22 at 8:17 am Service Date, if different from initiated Date: [] Patient: Melly Newell a 81 y/o F admitted on 02/28/22 for Right H emiarthroplasty Hip. Chief Complaint: [] Interval history: History of present illness: Ms. Newell is a 81 year old F Presents to the ED after fall and right hip pain. She lives at [facility] and report was that she was helping her roommate when she lost her balance and fell on her right hip immediate pain. She is on Xarelto with an INR of 1.5. She does not know where she is on Xarelto. Family are coming and will try to ascertain the reasoning for which she is taking that medication. We were contacted orthopedic surgery. 03/01 No overnight event or new complaints. Patient pleasantly demented. Ortho for repair tomorrow. Sounds like she is on Xarelto for atrial fibrillation which is currently sinus likely paroxysmal A. fib. 03/02 Patient status post hip ORIF. She is just returned from PACU and still little g roggy. Complains of some hip pain. Patient required increasing oxygen yesterday. As she seemed to be having trouble trouble clearing her throat. Then she was able to cough up a large amount of thick phlegm in her oxygen improved. She was on room air this morning prior to surgery. Follow-up chest x-ray yesterday just showed minor bibasilar atelectasis no acute changes. Calcitonin unremarkable. Afebrile. 03/03 Patient requiring oxygen. Chest x-ray with COPD changes. Very mild persistent leukocytosis. Patient sitting up eating breakfast. Pleasant feels better other than occasional headache Review of Systems: denies headache/fever/chills/nausea/vomiting/chest or abdominal pain/cough/d yspnea/diarrhea. Otherwise see above. Constitutional Vitals: Vital Signs Temp Pulse Resp BP Pulse Ox O2 Del Method O2 Flow Rate 98.1 F 75 20 106/66 92 2 03/03/22 07:33 03/03/22 04:00 03/03/22 07:33 03/03/22 07:33 03/03/22 07:33 03/03/22 07:33 03/03/22 07:33 Period Temp Pulse Resp BP Sys/Wasserman Pulse Ox O2 Del Method O2 Flow Rate Last 24 Hr 97 F-98.3 F 57-100 7-20 96-150/56-100 64-95 Nasal Cannula-Room Air 2-6 Intake and Output 03/02/22 03/03/22 03/03/22 19:59 03:59 11:59 Intake Total 1487 100 Output Total 150 380 Balance 1337 -280 Weight 71.214 kg Intake & Output: Intake & Output 03/02/22 03/03/22 03/03/22 19:59 03:59 11:59 Intake Total 1487 100 Output Total 150 380 Balance 1337 -280 Weight 71.214 kg Intake: IV 862 Sodium Chloride 0.9% 1,000 ml @ 862 100 mls/hr IV .Q10H [facility] Rx#: [id number] Oral 625 100 Output: Urine Catheter Amount 150 380 Other: Urine Appearance Clear Clear Clear Uretheral (Dillon) Clear Urine Color Yellow Dark Zarina Dark Yellow Uretheral (Dillon) Dark Yellow Urine Odor Normal Normal Exam: General: Drowsy, No acute Distress Eyes/N/T: EOMI,, Head/Neck: neck supple, CV: RRR, No murmurs, Pulm: Clear b/l, no wheezing/rhonchi/rales Abd: soft, nontender, +BS x4 Ext: no clubbing/cyanosis/edema Neuro: Drowsy postop but awakens, no focal deficits, moves all extremities, Skin: warm/dry OBJ DATA Labs CBC & Chem 7: 03/03/22 05:24 03/03/22 05:24 Labs: Abnormal Lab Results 03/03/22 03/03/22 03/02/22 05:24 05:24 05:36 WBC 11.6 H 11.1 H MCV 101.1 H 101.0 H Immature Gran % (Auto) Neut % (Auto) 82.0 H Lymph % (Auto) 9.0 L 12.6 L Lymph # (Auto) 1.04 L 1.40 L Shelby # (Auto) 1.00 H 0.93 H Absolute Neutrophils 9.48 H 8.67 H Reactive Lymphocytes RBC Morphology Macrocytosis PT INR Glucose 127 H Procalcitonin Urine Appearance Urine Ketones Urine RBC Hyaline Casts Urine Mucus 03/01/22 03/01/22 03/01/22 15:28 15:28 05:41 WBC 11.4 H MCV 102.0 H Immature Gran % (Auto) Neut % (Auto) 81.6 H Lymph % (Auto) 8.9 L Lymph # (Auto) 1.01 L Shelby # (Auto) 0.94 H Absolute Neutrophils 9.31 H Reactive Lymphocytes 4 H RBC Morphology Abnormal A Macrocytosis 1+ A PT INR Glucose Procalcitonin 0.17 H Urine Appearance Urine Ketones Urine RBC Hyaline Casts Urine Mucus 02/28/22 02/28/22 02/28/22 16:00 07:10 07:10 WBC MCV 101.7 H Immature Gran % (Auto) 0.6 H Neut % (Auto) Lymph % (Auto) Lymph # (Auto) Shelby # (Auto) Absolute Neutrophils Reactive Lymphocytes RBC Morphology Macrocytosis PT 18.0 H INR 1.5 H Glucose Procalcitonin Urine Appearance Hazy A Urine Ketones 5 A Urine RBC 14 H Hyaline Casts 3 H Urine Mucus Few A Meds: Medications Acetaminophen (Acetaminophen 325 Mg Tablet) 650 mg PO Q6HP PRN; Protocol PRN Reason: Per Pain Protocol/Fever > 101 Last Admin: 03/01/22 19:43 Dose: 650 mg Hydrocodone Bitart/Acetaminophen (Hydrocodone/Apap 5/325mg Tablet) 1 tab PO Q4HP PRN PRN Reason: PAIN LEVEL 3-6 Last Admin: 03/02/22 21:48 Dose: 1 tab Albuterol/Ipratropium (Ipratropium/Albuterol 3 Ml Ampul.Neb) 3 ml NEB Q4HP PRN PRN Reason: Shortness Of Breath Last Admin: 03/01/22 07:03 Dose: 3 ml Docusate Sodium (Docusate Sodium 100 Mg Capsule) 100 mg PO BID [facility] Last Admin: 03/02/22 21:49 Dose: 100 mg Potassium Chloride 40 meq/ (Dextrose) 520 mls @ 130 mls/hr IV UD PRN PRN Reason: Potassium < 3 Magnesium Sulfate (Magnesium Sulfate) 2 gm in 50 mls @ 50 mls/hr IV UD PRN PRN Reason: Magnesium </= 1.6 Sodium Chloride (Sodium Chloride 0.9%) 1,000 mls @ 100 mls/hr IV .Q10H [facility] Last Admin: 03/03/22 05:43 Dose: Not Given Metoprolol Tartrate (Metoprolol Tartrate 5 Mg/5 Ml Vial) 5 mg IV Q2HP PRN PRN Reason: Tachyarrhythmias HR>110 Metoprolol Tartrate (Metoprolol Tartrate 25 Mg Tablet) 12.5 mg PO BID [facility] Last Admin: 03/02/22 21:49 Dose: 12.5 mg Morphine Sulfate (Morphine 4 Mg/Ml Vial) 0 mg IV Q3HP PRN PRN Reason: Pain Last Admin: 03/02/22 14:22 Dose: 3 mg Ondansetron HCl (Ondansetron 4 Mg/2 Ml Vial) 4 mg IV Q4HP PRN PRN Reason: Nausea And Vomiting Last Admin: 02/28/22 15:22 Dose: 4 mg Polyethylene Glycol (Polyethylene Glycol 3350 17 Gm Packet) 17 gm PO DAILYP PRN PRN Reason: Constipation Potassium Chloride (Potassium Chloride 20 Meq Tablet) 40 meq PO UD PRN PRN Reason: Potssium is 3-3.5 Potassium Chloride (Potassium Chloride 20 Meq Tablet) 40 meq PO UD PRN PRN Reason: Potassium < 3 Promethazine HCl (Promethazine 25 Mg/Ml Vial) 12.5 mg IV Q4-6HP PRN PRN Reason: Nausea And Vomiting Last Admin: 02/28/22 16:12 Dose: 12.5 mg Senna (Sennosides 1 Tablet) 2 tab PO DAILYP PRN PRN Reason: Constipation Sodium Biphosphate/Sodium Phosphate (Fleets Adult Enema) 1 dose HI Q3-4DAYS PRN PRN Reason: Constipation Sodium Chloride (0.9 % Sodium Chloride 10 Ml Syringe) 10 ml IV Q8 [facility] Last Admin: 03/03/22 05:43 Dose: Not Given A/P Narrative A/P Narrative: A: *Right hip fracture: s/p ORIF (03/02) *Advanced dementia: *Generalized weakness/deconditioning: *PAF: on xaralto, not on any AVN blockers *Macrocytosis: *Volume depletion: improved *Acute hypoxic resp failure: 2/2 atelectasis and poor clearing of airway P: -Dr. Carson for orthopedic surgery -Pain control -PT/OT -f/u cbc/chem -cxr -tele, start BB -IS/Acapella, monitor O2 -Delirium precautions -Case management for placement needs -ppx: SCDs (Xarelto held for surgery to start tomorrow) Time Spent With Patient Time: Total time spent is greater than 50% in coordination of care (as documented) at patient's floor/unit and/or counseling patient: Total time spent with greater than 50% in coordination of care (as documented) at patient's floor/unit and/or counseling patient:: 35 - 50 minutes QUALITY Stroke Symptom Onset Unknown: No VTE Deep Vein Thrombosis/Pulmonary Embolism Present on Admission: No
[2022-03-03] MEDS: HYDROcodone/APAP 5/325MG TABLET PO PRN ×4 (08:27→20:09)
[2022-03-03] MEDS: METOPROLOL TARTRATE 25 MG TABLET PO SCH ×2 (08:34→20:08)
[2022-03-03] MEDS: DOCUSATE SODIUM 100 MG CAPSULE PO SCH ×2 (08:34→20:08)
--- NOTE | 2022-03-03 09:27 | Orthopedic Progress Note ---
SUBJECTIVE Subjective Patient information: Note initiated : 03/03/22 at 9:25 am Service Date, if different from initiated Date: [] Patient: Melly Newell 81 y/o F admitted on 02/28/22 for Right H emiarthroplasty Hip. Chief Complaint: Mild pain Constitutional Vitals: Vital Signs Temp Pulse Resp BP Pulse Ox O2 Del Method O2 Flow Rate 98.1 F 75 20 106/66 94 3 03/03/22 07:33 03/03/22 04:00 03/03/22 07:33 03/03/22 07:33 03/03/22 08:00 03/03/22 08:00 03/03/22 08:00 Period Temp Pulse Resp BP Sys/Wasserman Pulse Ox O2 Del Method O2 Flow Rate Last 24 Hr 97 F-98.3 F 57-100 7-20 96-150/56-100 64-95 Nasal Cannula-Room Air 2-6 Intake and Output 03/02/22 03/03/22 03/03/22 19:59 03:59 11:59 Intake Total 1487 1100 Output Total 150 380 Balance 1337 720 Weight 157 lb Intake & Output: Intake & Output 03/02/22 03/03/22 03/03/22 19:59 03:59 11:59 Intake Total 1487 1100 Output Total 150 380 Balance 1337 720 Weight 157 lb Intake: IV 862 1000 Sodium Chloride 0.9% 1,000 ml @ 862 1000 100 mls/hr IV .Q10H [facility] Rx#: [id number] Oral 625 100 Output: Urine Catheter Amount 150 380 Other: Urine Appearance Clear Clear Clear Uretheral (Dillon) Clear Clear Urine Color Yellow Dark Zarina Dark Yellow Uretheral (Dillon) Dark Yellow Yellow Urine Odor Normal Normal Additional findings Additional findings: Bandages c/d/i nvi-distal OBJ DATA Labs CBC & Chem 7: 03/03/22 05:24 03/03/22 05:24 Labs: Abnormal Lab Results 03/03/22 03/03/22 03/02/22 05:24 05:24 05:36 WBC 11.6 H 11.1 H MCV 101.1 H 101.0 H Neut % (Auto) 82.0 H Lymph % (Auto) 9.0 L 12.6 L Lymph # (Auto) 1.04 L 1.40 L Day # (Auto) 1.00 H 0.93 H Absolute Neutrophils 9.48 H 8.67 H Reactive Lymphocytes RBC Morphology Macrocytosis Glucose 127 H Procalcitonin Urine Appearance Urine Ketones Urine RBC Hyaline Casts Urine Mucus 03/01/22 03/01/22 03/01/22 15:28 15:28 05:41 WBC 11.4 H MCV 102.0 H Neut % (Auto) 81.6 H Lymph % (Auto) 8.9 L Lymph # (Auto) 1.01 L Day # (Auto) 0.94 H Absolute Neutrophils 9.31 H Reactive Lymphocytes 4 H RBC Morphology Abnormal A Macrocytosis 1+ A Glucose Procalcitonin 0.17 H Urine Appearance Urine Ketones Urine RBC Hyaline Casts Urine Mucus 02/28/22 16:00 WBC MCV Neut % (Auto) Lymph % (Auto) Lymph # (Auto) Day # (Auto) Absolute Neutrophils Reactive Lymphocytes RBC Morphology Macrocytosis Glucose Procalcitonin Urine Appearance Hazy A Urine Ketones 5 A Urine RBC 14 H Hyaline Casts 3 H Urine Mucus Few A Meds: Medications Acetaminophen (Acetaminophen 325 Mg Tablet) 650 mg PO Q6HP PRN; Protocol PRN Reason: Per Pain Protocol/Fever > 101 Last Admin: 03/01/22 19:43 Dose: 650 mg Hydrocodone Bitart/Acetaminophen (Hydrocodone/Apap 5/325mg Tablet) 1 tab PO Q4HP PRN PRN Reason: PAIN LEVEL 3-6 Last Admin: 03/03/22 08:27 Dose: 1 tab Albuterol/Ipratropium (Ipratropium/Albuterol 3 Ml Ampul.Neb) 3 ml NEB Q4HP PRN PRN Reason: Shortness Of Breath Last Admin: 03/01/22 07:03 Dose: 3 ml Docusate Sodium (Docusate Sodium 100 Mg Capsule) 100 mg PO BID [facility] Last Admin: 03/03/22 08:34 Dose: 100 mg Potassium Chloride 40 meq/ (Dextrose) 520 mls @ 130 mls/hr IV UD PRN PRN Reason: Potassium < 3 Magnesium Sulfate (Magnesium Sulfate) 2 gm in 50 mls @ 50 mls/hr IV UD PRN PRN Reason: Magnesium </= 1.6 Sodium Chloride (Sodium Chloride 0.9%) 1,000 mls @ 100 mls/hr IV .Q10H [facility] Last Infusion: 03/03/22 06:30 Dose: Infused Metoprolol Tartrate (Metoprolol Tartrate 5 Mg/5 Ml Vial) 5 mg IV Q2HP PRN PRN Reason: Tachyarrhythmias HR>110 Metoprolol Tartrate (Metoprolol Tartrate 25 Mg Tablet) 12.5 mg PO BID [facility] Last Admin: 03/03/22 08:34 Dose: 12.5 mg Morphine Sulfate (Morphine 4 Mg/Ml Vial) 0 mg IV Q3HP PRN PRN Reason: Pain Last Admin: 03/02/22 14:22 Dose: 3 mg Ondansetron HCl (Ondansetron 4 Mg/2 Ml Vial) 4 mg IV Q4HP PRN PRN Reason: Nausea And Vomiting Last Admin: 02/28/22 15:22 Dose: 4 mg Polyethylene Glycol (Polyethylene Glycol 3350 17 Gm Packet) 17 gm PO DAILYP PRN PRN Reason: Constipation Potassium Chloride (Potassium Chloride 20 Meq Tablet) 40 meq PO UD PRN PRN Reason: Potssium is 3-3.5 Potassium Chloride (Potassium Chloride 20 Meq Tablet) 40 meq PO UD PRN PRN Reason: Potassium < 3 Promethazine HCl (Promethazine 25 Mg/Ml Vial) 12.5 mg IV Q4-6HP PRN PRN Reason: Nausea And Vomiting Last Admin: 02/28/22 16:12 Dose: 12.5 mg Senna (Sennosides 1 Tablet) 2 tab PO DAILYP PRN PRN Reason: Constipation Sodium Biphosphate/Sodium Phosphate (Fleets Adult Enema) 1 dose CA Q3-4DAYS PRN PRN Reason: Constipation Sodium Chloride (0.9 % Sodium Chloride 10 Ml Syringe) 10 ml IV Q8 [facility] Last Admin: 03/03/22 05:43 Dose: Not Given A/P Narrative A/P Narrative: 1 day s/p R Raudel Hip Arthroplasty-stable weight bear as tolerated. f/u 2 weeks at [facility] for staple removal. Mobilize with PT Re-start anticoagulation 48hrs post-op. Time Spent With Patient Time: Total time spent is greater than 50% in coordination of care (as documented) at patient's floor/unit and/or counseling patient: Total time spent with greater than 50% in coordination of care (as documented) at patient's floor/unit and/or counseling patient:: less than 15 minutes
[2022-03-03] MEDS: morphine 4 MG/ML VIAL IV PRN (10:28)
--- NOTE | 2022-03-03 11:07 | Discharge Summary ---
Discharge Provider Provider IMPORTANT FOLLOW-UP INFORMATION FOR PCP: Patient information: Note initiated : 03/03/22 at 11:06 am Service Date, if different from initiated Date: [] Patient: Melly Newell 81 y/o F admitted on 02/28/22 for Right Hemiarthroplasty Hip. Chief Complaint: [] Date of admission: 02/28/22 12:01 Discharge date: 03/04/22 Primary care physician: Kayleigh Choudhury Consults: 02/28/22 Consult to Physician [CONS] Stat Comment: Consulting Provider: Pranay Kim Reason For Exam: Physician to Consult Consult to Physician [CONS] Stat Comment: Consulting Provider: Karime Carson Reason For Exam: Physician to Consult 03/02/22 16:48 Consult to Physician [CONS] Routine Comment: Consulting Provider: [facility] Reason For Exam: Physician to Consult COURSE Hospital Course Hospital course: History of present illness: Ms. Newell is a 81 year old F Presents to the ED after fall and right hip pain. She lives at [facility] and report was that she was helping her roommate when she lost her balance and fell on her right hip immediate pain. She is on Xarelto with an INR of 1.5. She does not know where she is on Xarelto. Family are coming and will try to ascertain the reasoning for which she is taking that medication. We were contacted orthopedic surgery. 03/01 No overnight event or new complaints. Patient pleasantly demented. Ortho for repair tomorrow. Sounds like she is on Xarelto for atrial fibrillation which is currently sinus likely paroxysmal A. fib. 03/02 Patient status post hip ORIF. She is just returned from PACU and still little groggy. Complains of some hip pain. Patient required increasing oxygen yesterday. As she seemed to be having trouble trouble clearing her throat. Then she was able to cough up a large amount of thick phlegm in her oxygen improved. She was on room air this morning prior to surgery. Follow-up chest x-ray yesterday just showed minor bibasilar atelectasis no acute changes. Calcitonin unremarkable. Afebrile. 03/03 Patient requiring oxygen. Chest x-ray with COPD changes. Very mild persistent leukocytosis. Patient sitting up eating breakfast. Pleasant feels better other than occasional headache 03/04 Patient presently demented. Sitting up in chair eating breakfast. Did have low blood pressure overnight. Leukocytosis resolved. A: *Right hip fracture: s/p ORIF (03/02) *Advanced dementia: *Generalized weakness/deconditioning: *PAF: on xaralto *Macrocytosis: *Volume depletion: *Acute hypoxic resp failure: 2/2 atelectasis and poor clearing of airway P: -f/u with Dr. Carson Discharge diagnosis: Right hip fracture dementia generalized weakness paroxysmal A. fib Secondary discharge diagnosis: Macrocytosis on depletion acute hypoxic respite failure Time Spent with Patient Time attestation: Total time spent providing and/or coordinating discharge services: Time spent: Greater than 30 minutes EXAM Constitutional Vitals: Temp Pulse Resp BP Pulse Ox O2 Del Method O2 Flow Rate 98.1 F 75 20 106/66 94 3 03/03/22 07:33 03/03/22 04:00 03/03/22 07:33 03/03/22 07:33 03/03/22 08:00 03/03/22 08:00 03/03/22 08:00 Discharge Data Data Completed and Pending Labs on day of discharge: Labs from last 24 hours 03/03/22 03/03/22 05:24 05:24 WBC 11.6 H RBC 3.74 Hgb 12.3 Hct 37.8 MCV 101.1 H MCH 32.9 MCHC 32.5 RDW 12.2 Plt Count 189 MPV 9.8 Immature Gran % (Auto) 0.4 Neut % (Auto) 82.0 H Lymph % (Auto) 9.0 L Smyth % (Auto) 8.6 Eos % (Auto) 0 Baso % (Auto) 0 Lymph # (Auto) 1.04 L [place] # (Auto) 1.00 H Eos # (Auto) 0 Baso # (Auto) 0 Immature Gran # 0.05 Absolute Neutrophils 9.48 H Sodium 136 Potassium 4.3 Chloride 104 Carbon Dioxide 24 Anion Gap 8.0 BUN 22 Creatinine 0.7 GFR Calculation 80 Glucose 127 H Calcium 9.2 Discharge Plan Patient/Caregiver Discharge Instructions Activity: increase activity as tolerated Diet: Regular Diet Prescriptions: Continued B-complex with vitamin C Tablet 1 tab PO QDAY letrozole 2.5 mg Tablet 2.5 mg PO QDAY cholecalciferol (vitamin D3) 125 mcg (5,000 unit) Tablet 125 mcg PO QDAY Xarelto 20 mg Tablet 20 mg PO QPM Rx Instructions: must administer with evening meal Follow Up Plan Follow up with: Karime Carson MD [Physician] - Patient Disposition: Xfer SNF Prognosis: Fair Rehab Potential: Fair I certify that the patient requires SNF services: Yes Overall status at discharge: patient is progressing back to baseline Discharge Orders: Discharge Order (Routine); Ordered 03/04/22 Ordered By: Pranay Kim [facility] VTE Deep Vein Thrombosis/Pulmonary Embolism Present on Admission: No
--- NOTE | 2022-03-03 14:32 | XRay Report ---
CLINICAL INFORMATION: Hypoxia COMPARISON: 03/01/2022 TECHNIQUE: Portable FINDINGS: Moderate cardiomegaly is unchanged. Mediastinum and pulmonary vessels are normal. Minor bibasilar atelectasis noted as before. No effusions. IMPRESSION: Moderate stable cardiomegaly and minor bibasilar atelectasis Interpreted and Authenticated by: Jared Sanford 03/03/22
[2022-03-04] MEDS: 0.9 % SODIUM CHLORIDE 10 ML SYRINGE IV SCH (05:32)
[2022-03-04 06:37] LABS: Basophils # (Auto) 0.02 K/mcL (0.00-0.30); Basophils % (Auto) 0.2 % (0.0-2.0); Eosinophils # (Auto) 0.12 K/mcL (0.00-0.70); Eosinophils % (Auto) 1.1 % (0.0-7.0); Hematocrit 39.3 % (34.1-44.9); Hemoglobin 12.9 g/dL (11.2-15.7); Lymphocytes # (Auto) 2.39 K/mcL (1.50-4.80); Lymphocytes % (Auto) 22.3 % (15.5-49.0); Mean Cell Volume 103.7 fL (80.0-100.0); Mean Corpuscular HGB Conc 32.8 g/dL (31.0-36.0); Mean Platelet Volume 9.9 fL (8.8-12.5); Monocytes # (Auto) 1.23 K/mcL (0.10-0.90); Monocytes % (Auto) 11.5 % (1.0-12.0); Neutrophils % (Auto) 64.4 % (38.0-78.0); Platelet Count 232 K/mcL (140-440); RBC 3.79 M/mcL (3.59-5.38); Red Cell Distribution Width 12.1 % (11.5-14.5); WBC 10.7 K/mcL (4.5-11.0)
[2022-03-04 07:05] LABS: Blood Urea Nitrogen 28 mg/dL (8-23); Calcium 9.3 mg/dL (8.6-10.4); Carbon Dioxide 24 mmol/L (22-30); Chloride 101 mmol/L (96-108); Glomerular Filtration Rate 80; Glucose 99 mg/dL (70-105)
--- NOTE | 2022-03-04 09:30 | Operative Note ---
DATE OF OPERATION: 03/02/2022 PREOPERATIVE DIAGNOSIS: Right displaced femoral neck fracture. POSTOPERATIVE DIAGNOSIS: Right displaced femoral neck fracture. PROCEDURE PERFORMED: Open treatment of a right displaced femoral neck fracture with prosthetic hemiarthroplasty placing a [place] Accolade cemented 132-degree size 6 femoral stem; a +4 neck sleeve with a 48 mm unipolar head. SURGEON: Edu Smith M.D. DIRECTOR STATISTICAL PROGRAMMING: Good Marquez PA-C. The PA's assistance was required for the safe and efficient completion of the entire case. This provider's expertise and technical skill were required throughout the case. The PA assisted with preoperative coordination, intraoperative retraction, wound closure, dressing and splint application, as well as postoperative documentation and care coordination. ANESTHESIA: Spinal plus general. DRAINS: None. SPECIMEN: Femoral head, which was discarded ESTIMATED BLOOD LOSS: 150 mL. COMPLICATIONS: None. POSTOPERATIVE CONDITION: Fair. INDICATIONS FOR SURGERY: This is an 81-year-old female with dementia, who is on Xarelto for atrial fibrillation and fell 2 days ago at her nursing facility. She had severe pain and inability to bear weight. She was taken to the emergency department. X-rays showed a displaced femoral neck fracture. Since she was on Xarelto, my partner did not feel she was safe to proceed until 2 days after stopping the Xarelto, so surgery was delayed until today. FINDINGS AT SURGERY: There was a displaced femoral neck fracture. Post implantation showed a good stable hip throughout range of motion. PROCEDURE IN DETAIL: The patient had been seen preoperatively. Informed consent had been obtained by my partner, Dr. Carson, from the daughter. Correct operative site was marked in preoperative holding, and the patient received spinal anesthesia and was taken to the operating room. General endotracheal anesthesia was performed. She was then carefully positioned in the left lateral decubitus position and pressure points carefully padded. The right lower extremity was then carefully prepped and draped in normal sterile fashion. A timeout was performed verifying patient name, operative site, and plan. Ioban was used to cover all skin surfaces. A standard posterolateral approach was made with a scalpel through skin and subcutaneous tissue. Hemostasis was obtained with Bovie cautery. We continued sharp dissection down onto the IT band. We irrigated with IrriSept and then incised the IT band in line with the skin incision. A Charnley retractor was placed underneath. The leg was internally rotated. Fat was swept off the short external rotators and then these were released from the trochanter with Bovie cautery. I then T'd the capsule, following up the neck and head to the acetabular rim. A freshening neck cut was done with the saw blade and then a corkscrew was placed in the femoral head. This was levered out and sized on the back table. It did fit through a 49, but did not fit through a 48 mm. I cleaned the acetabulum of any residual bone fragments and then trialed a 48 head trial and this fit nicely without being too tight. We irrigated IrriSept deeply and then proximal femur was exposed. We then used a box osteotome to gain canal entry. A handheld awl was used to find the trajectory distally. We then used the lateralizing rasp on power and then started broaching. We broached up to a size 6. Minimal calcar planning was done. Due to her having a fairly long neck on the opposite side, I went with a +4 trial, and this was placed on the stem. Hip was reduced with satisfactory tension. I checked passive knee extension after flexing the knee, and there was some rebound, but not excessive. I also felt the knees through the drapes and they felt to be fairly similar. I then took the hip through our range of motion checks, flexing up to 90 and then internally rotating maximally, and it was completely stable. We went ahead and dislocated, re-exposed the proximal femur. Trial implants were removed. Definitive implants were opened. Cement restrictor was placed down the femoral canal and I brushed the canal copiously with a canal brush. We then placed this tampon suction down the femur while cement was being mixed. Once cement was mixed, we then filled the canal with cement and then pressurized and then implanted the stem. Excess cement was removed. Everything was held absolutely still while cement hardened. Once cement had fully hardened, we then cleaned the trunnion of the stem and then carefully impacted the head ball onto it. We re-reduced the hip and rechecked all of our checks for length and stability and they were the same as previous. The leg was then placed on a padded __. We irrigated IrriSept again, after a minute pulse lavaged copiously with saline. A #5 FiberWire was used to repair the posterior capsule. Charnley retractor was removed, and #1 Vicryls were used to repair the IT band. IrriSept was irrigated again, after a minute pulse lavaged again, and then fat was closed deeply with Vicryl and then 2-0 Monocryl for subcutaneous closure and mendez for skin. Xeroform and a sterile dressing were applied. She was placed in an abductor wedge, turned supine, awakened and transferred to recovery in fair condition. [id number] Job ID: [id number] Doc ID: [id number] Edu Smith MD
[2022-03-04] MEDS: DOCUSATE SODIUM 100 MG CAPSULE PO SCH (09:50)
[2022-03-04] MEDS: ACETAMINOPHEN 325 MG TABLET PO PRN (09:50)
[2022-03-04] MEDS: METOPROLOL TARTRATE 25 MG TABLET PO SCH (09:58)
--- NOTE | 2022-03-04 10:07 | Internal Med Progress Note ---
SUBJECTIVE Subjective Patient information: Note initiated : 03/04/22 at 10:05 am Service Date, if different from initiated Date: [] Patient: Melly Newell a 81 y/o F admitted on 02/28/22 for Right Hemiarthroplasty Hip. Chief Complaint: [] Interval history: History of present illness: Ms. Newell is a 81 year old F Presents to the ED after fall and right hip pain. She lives at [facility] and report was that she was helping her roommate when she lost her balance and fell on her right hip immediate pain. She is on Xarelto with an INR of 1.5. She does not know where she is on Xarelto. Family are coming and will try to ascertain the reasoning for which she is taking that medication. We were contacted orthopedic surgery. 03/01 No overnight event or new complaints. Patient pleasantly demented. Ortho for repair tomorrow. Sounds like she is on Xarelto for atrial fibrillation which is currently sinus likely paroxysmal A. fib. 03/02 Patient status post hip ORIF. She is just returned from PACU and still little groggy. Complains of some hip pain. Patient required increasing oxygen yesterday. As she seemed to be having trouble trouble clearing her throat. Then she was able to cough up a large amount of thick phlegm in her oxygen improved. She was on room air this morning prior to surgery. Follow-up chest x-ray yesterday just showed minor bibasilar atelectasis no acute changes. Calcitonin unremarkable. Afebrile. 03/03 Patient requiring oxygen. Chest x-ray with COPD changes. Very mild persistent leukocytosis. Patient sitting up eating breakfast. Pleasant feels better other than occasional headache 03/04 Patient presently demented. Sitting up in chair eating breakfast. Did have low blood pressure overnight. Leukocytosis resolved. Review of Systems: denies headache/fever/chills/nausea/vomiting/chest or abdominal pain/cough/dyspnea/diarrhea. Otherwise see above. Constitutional Vitals: Vital Signs Temp Pulse Resp BP Pulse Ox O2 Del Method O2 Flow Rate 98.3 F 84 16 114/75 94 2 03/04/22 08:34 03/04/22 08:34 03/04/22 08:34 03/04/22 08:34 03/04/22 08:34 03/04/22 08:34 03/04/22 06:26 Period Temp Pulse Resp BP Sys/Wasserman Pulse Ox O2 Del Method O2 Flow Rate Last 24 Hr 97.5 F-98.6 F 72-95 15-17 81-114/53-75 86-97 Nasal Cannula- Room Air 2-2 Intake and Output 03/03/22 03/04/22 03/04/22 19:59 03:59 11:59 Intake Total 640 520 Output Total 350 300 Balance 290 220 Weight 75.024 kg Intake & Output: Intake & Output 03/03/22 03/04/22 03/04/22 19:59 03:59 11:59 Intake Total 640 520 Output Total 350 300 Balance 290 220 Weight 75.024 kg Intake: Oral 640 520 Output: Urine Catheter Amount 350 Void Amount 300 Other: Meal Breakfast Percent of Meal Consumed 50% Feeding Ability Assist with Tray Set Up Urine Appearance Clear Clear Urine Color Bright Yellow Dark Yellow Urine Odor Normal Normal Stool Size Smear Stool Color Brown Exam: General: Awake, No acute Distress Eyes/N/T: EOMI,, Head/Neck: neck supple, CV: RRR, No murmurs, Pulm: Clear b/l, no wheezing/rhonchi/rales Abd: soft, nontender, +BS x4 Ext: no clubbing/cyanosis/edema Neuro: Alert and awake, no focal deficits, moves all extremities, Skin: warm/dry OBJ DATA Labs CBC & Chem 7: 03/04/22 05:56 03/04/22 05:55 Labs: Abnormal Lab Results 03/04/22 03/04/22 03/03/22 05:56 05:55 05:24 WBC MCV 103.7 H Neut % (Auto) Lymph % (Auto) Lymph # (Auto) [place] # (Auto) 1.23 H Absolute Neutrophils Reactive Lymphocytes RBC Morphology Macrocytosis BUN 28 H Glucose 127 H Procalcitonin 03/03/22 03/02/22 03/01/22 05:24 05:36 15:28 WBC 11.6 H 11.1 H MCV 101.1 H 101.0 H Neut % (Auto) 82.0 H Lymph % (Auto) 9.0 L 12.6 L Lymph # (Auto) 1.04 L 1.40 L [place] # (Auto) 1.00 H 0.93 H Absolute Neutrophils 9.48 H 8.67 H Reactive Lymphocytes RBC Morphology Macrocytosis BUN Glucose Procalcitonin 0.17 H 03/01/22 15:28 WBC MCV Neut % (Auto) Lymph % (Auto) Lymph # (Auto) [place] # (Auto) Absolute Neutrophils Reactive Lymphocytes 4 H RBC Morphology Abnormal A Macrocytosis 1+ A BUN Glucose Procalcitonin Meds: Medications Acetaminophen (Acetaminophen 325 Mg Tablet) 650 mg PO Q6HP PRN; Protocol PRN Reason: Per Pain Protocol/Fever > 101 Last Admin: 03/04/22 09:50 Dose: 650 mg Hydrocodone Bitart/Acetaminophen (Hydrocodone/Apap 5/325mg Tablet) 1 tab PO Q4HP PRN PRN Reason: PAIN LEVEL 3-6 Last Admin: 03/03/22 20:09 Dose: 1 tab Albuterol/Ipratropium (Ipratropium/Albuterol 3 Ml Ampul.Neb) 3 ml NEB Q4HP PRN PRN Reason: Shortness Of Breath Last Admin: 03/01/22 07:03 Dose: 3 ml Docusate Sodium (Docusate Sodium 100 Mg Capsule) 100 mg PO BID [facility] Last Admin: 03/04/22 09:50 Dose: 100 mg Potassium Chloride 40 meq/ (Dextrose) 520 mls @ 130 mls/hr IV UD PRN PRN Reason: Potassium < 3 Magnesium Sulfate (Magnesium Sulfate) 2 gm in 50 mls @ 50 mls/hr IV UD PRN PRN Reason: Magnesium </= 1.6 Metoprolol Tartrate (Metoprolol Tartrate 5 Mg/5 Ml Vial) 5 mg IV Q2HP PRN PRN Reason: Tachyarrhythmias HR>110 Metoprolol Tartrate (Metoprolol Tartrate 25 Mg Tablet) 12.5 mg PO BID [facility] Last Admin: 03/04/22 09:58 Dose: Not Given Morphine Sulfate (Morphine 4 Mg/Ml Vial) 0 mg IV Q3HP PRN PRN Reason: Pain Last Admin: 03/03/22 10:28 Dose: 3 mg Ondansetron HCl (Ondansetron 4 Mg/2 Ml Vial) 4 mg IV Q4HP PRN PRN Reason: Nausea And Vomiting Last Admin: 02/28/22 15:22 Dose: 4 mg Polyethylene Glycol (Polyethylene Glycol 3350 17 Gm Packet) 17 gm PO DAILYP PRN PRN Reason: Constipation Potassium Chloride (Potassium Chloride 20 Meq Tablet) 40 meq PO UD PRN PRN Reason: Potssium is 3-3.5 Potassium Chloride (Potassium Chloride 20 Meq Tablet) 40 meq PO UD PRN PRN Reason: Potassium < 3 Promethazine HCl (Promethazine 25 Mg/Ml Vial) 12.5 mg IV Q4-6HP PRN PRN Reason: Nausea And Vomiting Last Admin: 02/28/22 16:12 Dose: 12.5 mg Senna (Sennosides 1 Tablet) 2 tab PO DAILYP PRN PRN Reason: Constipation Last Admin: 03/03/22 20:08 Dose: 2 tab Sodium Biphosphate/Sodium Phosphate (Fleets Adult Enema) 1 dose MD Q3-4DAYS PRN PRN Reason: Constipation Sodium Chloride (0.9 % Sodium Chloride 10 Ml Syringe) 10 ml IV Q8 MARIAN Last Admin: 03/04/22 05:32 Dose: 10 ml A/P Narrative A/P Narrative: A: *Right hip fracture: s/p ORIF (03/02) *Advanced dementia: *Generalized weakness/deconditioning: *PAF: on xaralto, not on any AVN blockers *Macrocytosis: *Volume depletion: improved *Acute hypoxic resp failure: 2/2 atelectasis and poor clearing of airway P: -Dr. Carson for orthopedic surgery -Pain control -PT/OT -f/u cbc/chem -cxr -tele, started BB but will hold for Low BP o/n -IS/Acapella, monitor O2 -Delirium precautions -Case management for placement needs -ppx: SCDs (Xarelto held for surgery to start tomorrow) Time Spent With Patient Time: Total time spent is greater than 50% in coordination of care (as documented) at patient's floor/unit and/or counseling patient: Total time spent with greater than 50% in coordination of care (as documented) at patient's floor/unit and/or counseling patient:: 25 - 35 minutes QUALITY Stroke Symptom Onset Unknown: No VTE Deep Vein Thrombosis/Pulmonary Embolism Present on Admission: No
[2022-03-04] MEDS: HYDROcodone/APAP 5/325MG TABLET PO PRN (11:16)
[2022-03-04] MEDS ORDERED: RIVAROXABAN 20 MG TABLET PO SCH (17:00)
== END 2022-03-04 14:30 | DRG 521 ==
LOC: ED 06:35 → MEDSUR 12:01
PROVIDERS: ADMIT Internal Medicine; ATTEND Internal Medicine